=== PATIENT | female | born 1960 | race Hispanic/Latino ===

== ENCOUNTER 2020-06-11 15:22 | Emergency (ER) | payer BC, OTHER ==
[2020-06-11] MEDS ORDERED: PROCHLORPERAZINE EDISYLATE 10 MG/2 ML VIAL ONE (16:21)
[2020-06-11] MEDS ORDERED: DiphenhydrAMINE HCL 50 MG/ML VIAL ONE (16:21)
[2020-06-11] MEDS ORDERED: SODIUM CHLORIDE 0.9% 1000ML 1,000 ML IV ONE (16:22)
== END 2020-06-11 17:27 | disposition home or self-care (01) ==
LOC: EDH 15:22
DX: G43.911 Migraine, unspecified, intractable, with status migrainosus (principal); Z90.49 Acquired absence of other specified parts of digestive tract; Z98.890 Other specified postprocedural states; Z88.0 Allergy status to penicillin
CPT/HCPCS: 96361; 96374; 96375; 99284; J0780; J1200; J7030

== ENCOUNTER 2020-12-17 12:45 | Emergency (ER) | payer BC ==
[~2020-12-17] VITALS: Ht 157.5 cm; Wt 64.4 kg
[2020-12-17 12:46] VITALS: BP 113/68
[2020-12-17 13:20] LABS: BASOPHILS % (AUTO) 0.7 % (0.0-5.0); EOSINOPHILS % (AUTO) 1.3 % (0.0-8.0); HEMATOCRIT 38.8 % (36-48); MEAN CORPUSCULAR HEMOGLOBIN 29.3 pg (27.0-33.0); MEAN CORPUSCULAR HGB CONC 32.2 g/dL (32.0-36.0); MEAN CORPUSCULAR VOLUME 90.9 fL (79-99); MONOCYTES % (AUTO) 7.1 % (3.0-13.0); NEUTROPHILS % (AUTO) 72.6 % (40.0-77.0); PLATELET COUNT (AUTO) 258 K/uL (130-400); RED BLOOD CELL COUNT(AUTO) 4.27 MIL/uL (4.00-5.50); RED CELL DISTRIBUTION WIDTH 13.5 % (11.0-15.5); WHITE BLOOD COUNT (AUTO) 7.5 K/uL (4.8-10.8)
[2020-12-17 13:30] VITALS: BP 135/74
[2020-12-17 13:31] LABS: CARBON DIOXIDE 28 mmol/L (21-32); CHLORIDE 105 mmol/L (101-111); CREATININE 0.8 mg/dL (0.5-1.5); GLOMERULAR FILTR. RATE CALC 78 mL/min (>60); GLUCOSE,RANDOM 101 mg/dL (70-105); POTASSIUM 3.5 mmol/L (3.5-5.1); SODIUM SERUM 143 mmol/L (136-145); UREA NITROGEN, BLOOD 11 mg/dL (7-18)
[2020-12-17 13:42] LABS: ALANINE AMINOTRANSFERASE 52 U/L (12-78); ALBUMIN 3.4 g/dL (3.5-5.0); AMYLASE 75 U/L (25-115); ASPARTATE AMINOTRANSFERASE 88 U/L (10-37); BILIRUBIN,TOTAL 0.3 mg/dL (0.2-1.0); CREATINE KINASE, TOTAL 259 U/L (21-232); LIPASE 285 U/L (114-286); MYOGLOBIN 148 ng/mL (10-92); TOTAL PROTEIN, SERUM 6.7 g/dL (6.0-8.3); TROPONIN I < 0.04 ng/mL (0.00-0.06)
[2020-12-17 15:21] LABS: APPEARANCE,URINE Clear (CLEAR); BILIRUBIN,URINE Negative (NEGATIVE); COLOR,URINE Yellow (YELLOW); GLUCOSE, URINE (UA) Negative (NEGATIVE); KETONES,URINE Negative (NEGATIVE); LEUKOCYTE ESTERASE ,URINE Negative (NEGATIVE); NITRATE,URINE Negative (NEGATIVE); OCCULT BLOOD,URINE Negative (NEGATIVE); PH,URINE 5.5 (5.0-8.0); PROTEIN,URINE Negative (NEGATIVE); UROBILINOGEN,URINE 0.2 mg/dL (0.2-1.0)
[2020-12-17] MEDS ORDERED: KETOROLAC 15MG/ML VIAL (15MG/ML) ONE (15:39)
[2020-12-17 18:04] VITALS: BP 135/84
[2020-12-17] MEDS ORDERED: CEFTRIAXONE 1G VIAL IVP SCH (18:45)
[2020-12-17] MEDS ORDERED: CEFTRIAXONE 1G VIAL ONE (18:47)
[2020-12-17] MEDS ORDERED: AZIT500T2 PO (18:51)
[2020-12-17] MEDS ORDERED: GUAFACSF5L PO (18:51)
[2020-12-17 20:06] VITALS: BP 129/79
== END 2020-12-17 21:04 | disposition home or self-care (01) ==
LOC: EEVIPCON 12:45 → EDH 12:45
DX: J18.9 Pneumonia, unspecified organism (principal); R10.13 Epigastric pain; R11.2 Nausea with vomiting, unspecified; Z20.822 Contact with and (suspected) exposure to COVID-19; Z90.49 Acquired absence of other specified parts of digestive tract; Z98.890 Other specified postprocedural states; Z79.899 Other long term (current) drug therapy
CPT/HCPCS: 36415; 71045; 71250; 74176; 80053; 81003; 82150; 82550; 83690; 83874; 84484 ×2; 85025; 87635; 93005; 96374; 96375; 99285; C9803; J0696; J1885

== ENCOUNTER 2023-10-28 11:13 | Emergency (ER) | payer BC ==
[~2023-10-28] VITALS: Ht 160 cm; Wt 63.5 kg
[~2023-10-28 11:13] MED LIST: AZIT500T2 PO; GUAFACSF5L PO
[2023-10-28 11:54] LABS: BASOPHILS # (AUTO) 0.03 K/uL (0.00-0.20); BASOPHILS % (AUTO) 0.6 % (0.0-5.0); EOSINOPHILS # (AUTO) 0.09 K/uL (0.00-0.70); EOSINOPHILS % (AUTO) 1.7 % (0.0-8.0); HEMATOCRIT 38.2 % (36-48); IMMATURE GRANULOCYTE ABSOLUTE 0.01 K/uL (0-1); LYMPHOCYTES # (AUTO) 1.5 K/uL (1.0-4.8); LYMPHOCYTES % (AUTO) 26.7 % (21.0-51.0); MEAN CORPUSCULAR HEMOGLOBIN 29.2 pg (27.0-33.0); MEAN CORPUSCULAR HGB CONC 32.5 g/dL (32.0-36.0); MEAN CORPUSCULAR VOLUME 90.1 fL (79-99); MONOCYTES # (AUTO) 0.5 K/uL (0.1-1.0); MONOCYTES % (AUTO) 8.5 % (3.0-13.0); NEUTROPHILS # (AUTO) 3.4 K/uL (1.8-7.7); NEUTROPHILS % (AUTO) 62.3 % (40.0-77.0); PLATELET COUNT (AUTO) 271 K/uL (130-400); RED BLOOD CELL COUNT(AUTO) 4.24 MIL/uL (4.00-5.50); RED CELL DISTRIBUTION WIDTH 13.7 % (11.0-15.5); WHITE BLOOD COUNT (AUTO) 5.4 K/uL (4.8-10.8)
[2023-10-28 12:02] LABS: CREATININE 0.8 mg/dL (0.5-1.0); POTASSIUM 3.8 mmol/L (3.5-5.1)
[2023-10-28 12:07] LABS: ALBUMIN 3.2 g/dL (3.5-5.0); APPEARANCE,URINE CLEAR (CLEAR); BILIRUBIN,TOTAL 0.3 mg/dL (0.2-1.0); BILIRUBIN,URINE NEGATIVE (NEGATIVE); COLOR,URINE LIGHT-YELLOW (YELLOW); GLUCOSE, URINE (UA) NEGATIVE (NEGATIVE); KETONES,URINE NEGATIVE (NEGATIVE); LEUKOCYTE ESTERASE ,URINE NEGATIVE Leu/uL (NEGATIVE); NITRATE,URINE NEGATIVE (NEGATIVE); OCCULT BLOOD,URINE NEGATIVE (NEGATIVE); PH,URINE 5.5 (5.0-8.0); PROTEIN,URINE NEGATIVE (NEGATIVE); TOTAL PROTEIN, SERUM 6.5 g/dL (6.0-8.3); UROBILINOGEN,URINE 0.2 mg/dL (0.2-1.0)
[2023-10-28 12:08] LABS: ADD UA MICROSCOPIC NO
[2023-10-28] MEDS ORDERED: IOHEXOL-350 75 ML VIAL IV ONE (12:16)
[2023-10-28] MEDS: 0.9%NACL 1000ML 1,000 ML IV ONE (12:36)
[2023-10-28] MEDS: KETOROLAC 30MG VIAL (30MG/ML) IVP ONE (12:36)
[2023-10-28 13:37] VITALS: BP 106/48; PULSE 67; RESP 16; O2SAT 97
[2023-10-28] MEDS ORDERED: DICY20TA2 PO (13:50)
== END 2023-10-28 13:54 | disposition home or self-care (01) ==
LOC: EDH 11:13
DX: A08.4 Viral intestinal infection, unspecified (principal); R10.31 Right lower quadrant pain; Z79.899 Other long term (current) drug therapy; Z90.49 Acquired absence of other specified parts of digestive tract; Z98.890 Other specified postprocedural states; Z88.0 Allergy status to penicillin
CPT/HCPCS: 99284; 74177; 96374; 96361; 80053; 83690; 85025; 81003; 36415; J7030; J1885; Q9967

== ENCOUNTER 2023-12-29 11:16 | Emergency (ER) | payer BC, OTHER ==
[~2023-12-29] VITALS: Ht 160 cm; Wt 60.8 kg
[~2023-12-29 11:16] MED LIST changes: +DICY20TA2 PO
[2023-12-29 12:11] LABS: BASOPHILS # (AUTO) 0.03 K/uL (0.00-0.20); BASOPHILS % (AUTO) 0.6 % (0.0-5.0); EOSINOPHILS # (AUTO) 0.08 K/uL (0.00-0.70); EOSINOPHILS % (AUTO) 1.5 % (0.0-8.0); HEMATOCRIT 38.5 % (36-48); IMMATURE GRANULOCYTE ABSOLUTE 0.01 K/uL (0-1); LYMPHOCYTES # (AUTO) 1.4 K/uL (1.0-4.8); LYMPHOCYTES % (AUTO) 26.8 % (21.0-51.0); MEAN CORPUSCULAR HEMOGLOBIN 28.7 pg (27.0-33.0); MEAN CORPUSCULAR HGB CONC 31.7 g/dL (32.0-36.0); MEAN CORPUSCULAR VOLUME 90.6 fL (79-99); MONOCYTES # (AUTO) 0.4 K/uL (0.1-1.0); NEUTROPHILS # (AUTO) 3.3 K/uL (1.8-7.7); NEUTROPHILS % (AUTO) 62.9 % (40.0-77.0); PLATELET COUNT (AUTO) 286 K/uL (130-400); RED BLOOD CELL COUNT(AUTO) 4.25 MIL/uL (4.00-5.50); WHITE BLOOD COUNT (AUTO) 5.2 K/uL (4.8-10.8)
[2023-12-29 12:26] LABS: CREATININE 0.9 mg/dL (0.5-1.0); POTASSIUM 4.2 mmol/L (3.5-5.1)
[2023-12-29 12:30] LABS: ALBUMIN 3.5 g/dL (3.5-5.0); BILIRUBIN,DIRECT 0.1 mg/dL (0.0-0.3); BILIRUBIN,TOTAL 0.3 mg/dL (0.2-1.0)
[2023-12-29] MEDS: MORPHINE 4 MG SYG IVP ONE (13:41)
[2023-12-29] MEDS: ONDANSETRON 4MG INJ IVP ONE (13:41)
[2023-12-29] MEDS: MORPHINE 4 MG SYG ONE (13:41)
[2023-12-29] MEDS: ONDANSETRON 4MG INJ ONE (13:41)
[2023-12-29 14:27] LABS: APPEARANCE,URINE CLEAR (CLEAR); BILIRUBIN,URINE NEGATIVE (NEGATIVE); COLOR,URINE COLORLESS (YELLOW); GLUCOSE, URINE (UA) NEGATIVE (NEGATIVE); KETONES,URINE NEGATIVE (NEGATIVE); LEUKOCYTE ESTERASE ,URINE NEGATIVE Leu/uL (NEGATIVE); NITRATE,URINE NEGATIVE (NEGATIVE); OCCULT BLOOD,URINE NEGATIVE (NEGATIVE); PROTEIN,URINE NEGATIVE (NEGATIVE); UROBILINOGEN,URINE 0.2 mg/dL (0.2-1.0)
[2023-12-29 14:31] LABS: ADD UA MICROSCOPIC YES
[2023-12-29 14:33] LABS: BACTERIA,URINE RARE /HPF (None Seen); MUCUS,URINE RARE LPF (None Seen); RBC,URINE 0-1 /HPF (0-1); WBC,URINE 0-1 /HPF (0-1)
[2023-12-29] MEDS ORDERED: CYCL5TAB PO (14:44)
[2023-12-29] MEDS ORDERED: NAPR-1196 PO (14:44)
[2023-12-29 14:49] VITALS: BP 105/62; PULSE 74; RESP 17; O2SAT 97
== END 2023-12-29 14:55 | disposition home or self-care (01) ==
LOC: EDH 11:16
DX: R10.9 Unspecified abdominal pain (principal); G43.909 Migraine, unspecified, not intractable, without status migrainosus; Z90.49 Acquired absence of other specified parts of digestive tract; Z98.890 Other specified postprocedural states; Z79.899 Other long term (current) drug therapy; Z88.0 Allergy status to penicillin; Z79.2 Long term (current) use of antibiotics
CPT/HCPCS: 99285; 74176; 96374; 96375; 80076; 84484; 80048; 83690; 85025; 81001; 36415; 93005; J2405; J2270

== ENCOUNTER 2024-07-09 19:05 | Emergency (ER) | payer OTHER ==
[~2024-07-09] VITALS: Ht 160 cm; Wt 60.8 kg
[~2024-07-09 19:05] MED LIST changes: +CYCL5TAB3 PO; +NAPR-1196 PO
--- NOTE | 2024-07-09 20:09 | ERN ---
ED Note History of Present Illness Stated Complaint: HEADACHE,LIGHTHEADED, PAIN ON BOTH ARMS Chief Complaint: Headache Time Seen by MD: 19:16 Dictation: This is a 63-year-old female who presented to the emergency room complaining of headache lightheadedness and pain in both upper arms. She has a known history of rheumatoid arthritis and saw her PCP and received a shot details are not unknown She denied any weakness injury to the neck or motor vehicle accident. No history of weakness of the extremities or gait instability. The pain in the upper arms have been going on for a long time and in the last 1 week or so the pain is extremely disabling to her as she works as a economics teacher. She does report that she had left shoulder surgery by Dr. Kathie Echevarria Temperature 97.8 pulse 89 respirations 20 blood pressure 122/75 with a pulse oximetry of 98% on room air Her chronic medical problems include rheumatoid arthritis and history of migraine Allergies: Coded Allergies: No Allergy Information Available (Verified Allergy, Unknown, 12/17/20) Penicillins (Unverified Allergy, Unknown, 10/28/23) Home Meds Active Scripts Naproxen (Naproxen) 250 Mg Tablet, 250 MG PO BID for 5 Days, #10 TAB Prov:RADHA CARTWRIGHT MD 12/29/23 Cyclobenzaprine HCl (Cyclobenzaprine HCl) 5 Mg Tablet, 5 MG PO BID for 5 Days, #10 TAB Prov:RADHA CARTWRIGHT MD 12/29/23 Dicyclomine HCl (Bentyl) 20 Mg Tab, 20 MG PO Q6HPRN for ABD CRAMPS, #30 TAB Prov:GREGORIO SILVERMAN NP 10/28/23 Guaifenesin/Codeine Phos (Robitussin with Codeine Syrp - Sugar Free) 5 Ml Syrp, 5 ML PO QID, #120 ML Prov:AYANA GARCIA MD 12/17/20 Azithromycin (Zithromax Tri-Nima) 500 Mg Tablet, 500 MG PO DAILY, #3 TAB Prov:AYANA GARCIA MD 12/17/20 Past Medical History Past Medical History: Migraines, Other Additional Past Medical Hx: RHEUMATOID ARTHRITIS Surgical History: Cholecystectomy, Family History: Negative Social History: Negative History: Not Applicable RN Note Reviewed/Agreed w/PFSH: Yes Review of System Dictation Constitutional: Negative for fever,chills, and weight loss Eyes: Negative for injury, pain,redness, and discharge ENT: Negative for injury,pain or swelling Cardiovascular: Negative for chest pain, palpitations, and edema Respiratory: Negative for shortness of breath, cough, and wheezing, Abdomen/GI: Negative for abdominal pain, nausea, vomiting, diarrhea, and constipation Back: Negative for injury and pain : Negative for injury, bleeding and discharge MS/Extremity: Negative for injury and deformity Skin: Negative for rash, and discoloration Neuro: Positive for headache, denies weakness, numbness, tingling, and seizure positive for neck pain and upper extremity pain Psych: Negative for suicide ideation, homicidal ideation, and hallucinations Initial Vital Sign VS Vital Signs Date Time Temp Pulse Resp B/P (MAP) Pulse Ox O2 Delivery O2 Flow Rate FiO2 07/09/24 19:30 97.0 89 20 122/75 98 Room Air Physical Exam Dictation General: awake, alert, NAD Head/Face: Normocephalic, atraumatic Eyes: PERRL, EOMI, vision at baseline ENT: oral cavity clear, TMs clear, no signs of infection Neck: Trachea midline, supple, no nuchal rigidity Cardiovascular: RRR, normal S1/S2, No MRGs, no JVD Respiratory: CTAB, no respiratory distress, No rales or wheezes Abdomen: Soft, non-tender, non-distended, normal bowel sounds, no guarding or rebound. Skin: Warm, dry, normal turgor, no rash MS/Extremity: Pulses equal, no cyanosis, neurovascular intact, FROM Neuro: COAx4, GCS 15, strength 5/5, CN 2-12 intact, normal cerebellar exam, normal gait, Psych: Normal behavior, mood, and affect normal Extremities-trace edema without any palpable cords, Homans sign is negative Results (Laboratory/Radiology) Labs Reviewed?: Yes ED Course ED Course Orders Procedure Category Date Status Time Hydromorphone 1 Mg PHA 07/09/24 Complete Inj (Dilaudid 1mg Inj 21:00 Current Medications Medications (Trade) Dose Ordered Sig/Hao Route PRN Reason Start Time Stop Time Status Last Admin Dose Admin Hydromorphone HCl (DiLAUDid 1MG INJ) 1 mg ONCE ONCE IM 07/09/24 21:00 07/09/24 20:43 DC Vital Signs Date Time Temp Pulse Resp B/P (MAP) Pulse Ox O2 Delivery O2 Flow Rate FiO2 07/09/24 19:30 97.0 89 20 122/75 98 Room Air We will perform advanced imaging and administer medications according to the patient's complaint. Once the results are available, will review and personally interpreted the labs to rule out any acute life-threatening emergency the trach require immediate intervention and treatment. I will then re-evaluate the patient after treatment and diagnostic exams have return to determine whether the patient requires any further testing, can safely be discharged home or need further admission to hospital for additional treatment and evaluation. 8:20 p.m.--I requested cervical spine CT to evaluate for any spinal canal stenosis or cervical spondylosis but patient became irate and stated that she has pain in the arms and not in the neck. She only requested MRI of the shoulders And I explained to her the process of evaluation with simple noninvasive to the most advanced testing.. She refused x-rays and insisted that she wanted only MRI of the shoulders which was denied in the past . After I reassured her and explained that I would be happy to give her some relief for the pain and that it is very important for her to see Dr. Kathie Echevarria again if she believes that it is all right shoulder issue. I also educated her that it would be unwise for her to be getting opioid medication without having someone to drive her home. Initially she wanted to ask her however later she changed her mind and refused the pain medicine She has been discharged to follow up with orthopedic surgeon for further evaluation Medical Decision Making MDM MDM: Differential diagnosis: Neck strain, cervical spondylosis, cervical radiculopathy, spinal canal stenosis, shoulder arthritis, complex regional pain syndrome Rationale: Tests considered and ordered secondary to shared decision making include: Previous outside records reviewed: Old ER visits. Risk of complication and/or morbidity or mortality of patient management: None Medications-Per medication reconciliation Need for hospitalization: Patient does not meet criteria for hospitalization. Need for emergency major/minor surgery: No There are no social concerns with this patient. Prescription drug management Prescriptions will include symptomatic care Patient's prior external medical records from other ER visits were reviewed by me as indicated. Prior testing and results from previous visits were reviewed. Prior tests were taken into account with medical decision making and resource utilization, independent historian/historians were used to obtain complete medical history. I independently interpreted the test that were performed, results were reviewed by me and considered findings on radiology if ordered. Medical management and examination interpretation discussions were had by me with other qualified healthcare professionals as indicated for the patient's care. Problem List Problem List: (1) Bilateral arm pain (2) Arthritis of both shoulders DX & DISP Disposition: Discharge Departure Impression: Primary Impression: Bilateral arm pain Additional Impression: Arthritis of both shoulders Condition: Stable Additional Instructions: Patient and the caregiver have been informed of all the diagnostic tests and the imaging conducted during the today's visit to the emergency room and has verbalized understanding of the results I have personally reviewed and interpreted all diagnostic exams performed here in the ER today as well as the vital signs documented by the nursing staff. The patient is now being disch arged to home and should follow up with the primary care physician or the specialist as directed by the ER staff. Follow-up with primary care provider in 1 to 2 days. Take medications as directed here in the emergency room. Okay to continue home medications unless otherwise discussed during your visit in the emergency room today. Return to your nearest emergency room if symptoms worsen or if there is no improvement. Call 911 if you need immediate assistance. Take Tylenol or Motrin [id number] as needed and if no contraindications are present. Increase oral hydration. A wound culture or urine culture was ordered here in the emergency room department please follow-up with primary care provider and advise them to get repeat ports from our facility. If you had any Grayson wrap/splints that were applied here, please do not remove them until you see your primary care or specialty. Referrals: PABLO BAÑUELOS MD (PCP) KATHIE ECHEVARRIA MD, ANURADHA R MD Jul 09, 2024 20:09
[2024-07-09 20:49] VITALS: BP 129/84; PULSE 73; RESP 18; TEMP 97.5; O2SAT 100
[2024-07-09] MEDS ORDERED: hydroMORPHone 1 MG INJ IM ONE (21:00)
== END 2024-07-09 20:52 | disposition home or self-care (01) ==
LOC: EDH 19:05
DX: M19.012 Primary osteoarthritis, left shoulder (principal); M19.011 Primary osteoarthritis, right shoulder; Z88.0 Allergy status to penicillin; Z90.49 Acquired absence of other specified parts of digestive tract
CPT/HCPCS: 99282